=== PATIENT | female | born 1980 | race Caucasian/White ===

== ENCOUNTER → 2021-05-04 15:05 | Outpatient (CLI) | payer BC, SELFPAY ==
[2021-05-11 09:04] LABS: HPV APTIMA, High Risk Negative (Negative)
== END ==
PROVIDERS: PCP Internal Medicine; Visit Provider Obstetrics & Gynecology
DX: Z12.4 Encounter for screening for malignant neoplasm of cervix (principal)
CPT/HCPCS: 87624; 88175; G0145

== ENCOUNTER → 2023-05-01 | Outpatient (CLI) | payer BC, SELFPAY ==
--- NOTE | 2023-05-01 15:41 | BI_ITS ---
MAMMOGRAPHY - BILATERAL SCREENING REASON FOR EXAM: Female, 42 years old. Routine annual screening examination. PERTINENT HISTORY: Non-contributory. TECHNIQUE: Digital bilateral breast yuli (3D mammographic acquisition) in the CC and MLO projections. 2-D mediolateral oblique (MLO) and craniocaudad (CC) views of both breasts were obtained. CAD: Full Field Digital Mammography with Computer Added Detection was performed. COMPARISON: None. Baseline examination. FINDINGS: Breast Composition: The breasts are heterogeneously dense, which may obscure small masses. There is an 8.6 mm x 14.6 mm well-defined nodule in the inferior slightly medial aspect of the right breast. Correlation with ultrasound is recommended. No other significant abnormalities are identified. BI/SCRN MAMM (CAD)W/YULI BILAT IMPRESSION: 8.6 mm x 14.6 mm well-defined nodule in the inferior slightly medial aspect of the right breast. Correlation with ultrasound is recommended. ASSESSMENT CATEGORY: BIRADS Category 0: Incomplete. Need additional imaging evaluation. A letter regarding these results will be sent to the patient by the facility within 30 days. Approximately 10% of breast cancers are not detected by mammography. A normal mammogram should not delay biopsy of a clinically suspicious abnormality. [id number] Electronically Signed: Richard Giles MD at 8:45 EST ,
== END | disposition home or self-care (01) ==
PROVIDERS: PCP Internal Medicine; Referring Provider Nurse Practitioner Family; Visit Provider Nurse Practitioner Family
DX: Z12.31 Encounter for screening mammogram for malignant neoplasm of breast (principal)
CPT/HCPCS: 77063; 77067

== ENCOUNTER → 2023-05-09 | Outpatient (CLI) | payer BC, SELFPAY ==
--- NOTE | 2023-05-09 09:28 | US_ITS ---
STUDY: ULTRASOUND BREAST - RIGHT REASON FOR EXAM: Female, 42 years old. Abnormal screening mammogram. TECHNIQUE: Axial and longitudinal images of the RIGHT breast were performed with a high resolution ultrasound transducer. # OF IMAGES: 47 COMPARISON: Comparison is made with prior mammogram dated May 01, 2023. FINDINGS: RIGHT Breast: The inferior medial aspect of the right breast was examined with ultrasound. The mammographic abnormality corresponds to a 1.7 cm x 1.4 cm x 0.9 cm heterogeneous hypoechoic nodule at the 3:00 position of the breast at 1 cm from nipple. Biopsy recommended. There is also evidence of a 7 mm x 5 mm x 3 mm hypoechoic nodule within the subcutaneous fat just deep to the skin at the 4:00 position of the breast at 11 cm from the nipple. . This may represent a small sebaceous cyst. US/Breast Limited Unilateral IMPRESSION: The mammographic and mild) and 1.7 cm x 1.4 cm x 0.9 cm heterogeneous hypoechoic nodule at the 3:00 position of the breast at 1 cm from the nipple. Biopsy recommended. ASSESSMENT CATEGORY: BIRADS Category 4: Suspicious - Biopsy Should Be Considered. A letter regarding these results will be sent to the patient by the facility within 30 days. Electronically Signed: Richard Giles MD at 12:12 EST ,
== END | disposition home or self-care (01) ==
LOC: OPUS 09:27
PROVIDERS: PCP Internal Medicine; Referring Provider Nurse Practitioner Family; Visit Provider Nurse Practitioner Family
DX: N63.12 Unspecified lump in the right breast, upper inner quadrant (principal); N63.13 Unspecified lump in the right breast, lower outer quadrant
CPT/HCPCS: 76642

== ENCOUNTER → 2023-05-19 | Outpatient (CLI) | payer BC, SELFPAY ==
--- NOTE | 2023-05-19 10:30 | BRBX_PTH ---
PATIENT: ELIZA LIN LOC: [facility] U#:[id number] AGE/SX: 42/F ROOM: RE05/19/[address]: Dr. Kaitlynn Yung MD : 1980 BED: DIS: 05/19/2023 SPEC #: [id number] RECD: 05/19/23 13:16 STATUS: LYLE SADE #: [id number] MARILYN: 05/19/23 10:[address]: Kaitlynn Yung DEPT: SURGICAL PATHOLOGY RECD BY: Shannan Cerda ENTERED: 05/19/23 13:17 SP TYPE: BREAST BX OTHR DR: Dr. Shauna Ram DO Tissues: Right breast, NOS Procedures: Surgery Specimen Level IV HEADER OPERATION: Biopsy of right breast nodule PRE-OP DIAGNOSIS: Right breast nodule TISSUE SUBMITTED: Right breast nodule, 3 o'clock, 1 cm from nipple MICROSCOPIC DIAGNOSIS Right breast at 3 o'clock, needle core biopsy: Fibroadenoma. Focal fibrocystic change with associated banal microcalcifications. AM:moe 05/20/2023 MICROSCOPIC DESCRIPTION Slides are reviewed. GROSS DESCRIPTION Received in fixative is one container labeled with the patient's name and designated right breast nodule. The specimen consists of two cores of light krishna-yellow soft tissue measuring in aggregate 1.5 x 0.2 x 0.1 cm. The specimen is totally submitted in one cassette. / AM:moe 05/19/2023 TC:5 CPT: 74429
== END | disposition home or self-care (01) ==
LOC: LABSPEC 12:40
PROVIDERS: PCP Internal Medicine; Referring Provider Surgery; Visit Provider Surgery
DX: N63.10 Unspecified lump in the right breast, unspecified quadrant (principal)
CPT/HCPCS: 88305

== ENCOUNTER → 2024-01-26 | Outpatient (CLI) | payer BC, SELFPAY ==
--- NOTE | 2024-01-26 16:19 | US_ITS ---
STUDY: ULTRASOUND OF THE FEMALE PELVIS - COMPLETE REASON FOR EXAM: Female, 43 years old. AUB, prolapse LMP: January 24, 2024. TECHNIQUE: Transabdominal and Transvaginal TECHNICAL QUALITY: Adequate. COMPARISON: None. FINDINGS: The uterus is retroverted and is in a midline position. The uterus measures 9.2 cm x 5.9 cm x 3.7 cm. There is a Nabothian cyst of the cervix. The endometrium measures 4 mm in thickness, and is hyperechoic. There is no demonstrated endometrial mass. There is no demonstrated myometrial mass. I.U.D. - The patient does have an I.U.D. The right ovary is visualized. The right ovary measures 2.6 cm x 2.1 cm x 1.3 cm. There is a 9 mm x 14 mm x 8 mm dominant follicle in the right ovary. There is no visualized right adnexal mass or complex lesion. There is normal arterial and normal venous vascularity. The left ovary is visualized. The left ovary measures 3.2 cm x 1.7 cm x 1.3 cm. There is an 8 mm x 9 mm x 8 mm left ovarian follicle. There is no visualized left adnexal mass or complex lesion. There is normal arterial and normal venous vascularity. There is no fluid in the cul-de-sac. The pre void volume of the bladder was 318 ml. US/Pelvic w/ Transvaginal IMPRESSION: Follicles are seen in both ovaries. Electronically Signed: Richard Giles MD at 7:40 EDT ,
== END | disposition home or self-care (01) ==
LOC: US 16:19
PROVIDERS: PCP Nurse Practitioner Family; Referring Provider Obstetrics & Gynecology; Visit Provider Obstetrics & Gynecology
DX: N81.4 Uterovaginal prolapse, unspecified (principal); N93.9 Abnormal uterine and vaginal bleeding, unspecified
CPT/HCPCS: 76830; 76856

== ENCOUNTER 2024-01-30 05:33 | Day surgery (SDC) | payer BC, SELFPAY ==
[2024-01-23 08:00] LABS: Internal QC Validated? YES +Cl - CLEAR BKGD; Pregnancy, Urine Negative Negative
[2024-01-23 08:28] LABS: Hematocrit 39.5 % (37-47); Mean Corp Hgb Conc 32.9 g/dL (32-36); Mean Corpuscular Hgb 29.7 pg (27.0-32.0); Mean Corpuscular Volume 90.2 fL (81-99); Mean Platelet Vol. 10.1 fl (6.2-12.0); POSITIVE COUNT YES; RBC Distribution Width CV 12.7 % (11.6-14.6); RBC Distribution Width SD 42.4 fl (35.1-43.9); Red Blood Count 4.38 M/mm3 (4.2-5.4); White Blood Count 6.5 K/mm3 (4.4-11.0)
[2024-01-23 08:35] LABS: Magnesium 2.1 mg/dL (1.6-2.6); Thyroid Stim Hormone (TSH) 0.15 uIU/mL (0.358-3.74)
[2024-01-23 08:51] LABS: Scan Indicated on CBC? Y/N YES- FLAGS NOTED
[2024-01-23 08:55] LABS: Differential Comment SCANNED
[2024-01-30] VITALS (16 sets, daily range): BP systolic 90–117; BP diastolic 42–71; PULSE 74–109; RESP 16–20; TEMP 36.4–37.1; O2SAT 88–99; BMI 28.0
[2024-01-30 05:54] LABS: Internal QC Validated? YES +Cl - CLEAR BKGD; Pregnancy, Urine Negative Negative
[2024-01-30] MEDS: Magnesium 1 GM over 15 mins IV (06:16)
[2024-01-30] MEDS: Lactated Ringers 1,000 ML 40 ML IV (06:16)
[2024-01-30] MEDS: Acetaminophen 500 MG Tablet 1000 MG PO (06:21)
[2024-01-30] MEDS: Celecoxib 200 MG Capsule 400 MG PO (06:21)
[2024-01-30] MEDS: Gabapentin 600 MG Tablet PO (06:22)
[2024-01-30] MEDS: Enoxaparin 40 MG/0.4 ML Syringe SC (06:26)
[2024-01-30] MEDS: Scopolamine 1mg/72hr Patch 1 PATCH TD (06:30)
[2024-01-30] MEDS: dexAMETHasone 4 MG/ML Vial 8 MG IV (06:43)
[2024-01-30 07:07] LABS: Bedside Glucose 146 mg/dL (74-106)
--- NOTE | 2024-01-30 07:12 | PCM.PRE.AN2 ---
ASA Classification* ASA Classification ASA Classification: 2 Assessment & Plan Anesthesia* Anesthesia Assessment Anesthesia Assessment: Discussed sedation and/or anesthesia options, risks, benefits, and alternatives with patient/parents/legal guardian/POA. Questions invited. The patient/parents/legal guardian/POA seems to understand and agrees to proceed with anesthesia plan. Reviewed the physical assessment, medical history, allergy history and patient home medications list prior to surgery/procedure/anesthetic and documented any changes. Performed airway and anesthesia risk assessments. Anesthesia Type Anesthesia Type: General (see written pre anesthesia record for full assessment) Anesthesia Focused Assessment* Temperature: 97.7 F Pulse Rate: 74 Blood Pressure: 109/54 Respiratory Rate: 16 Pulse Ox: 99 Airway Assessment Mouth opens: >3 cm Mallampati Score: II Focused Labs Anesthesia Preop lab: CBC WBC 6.5 K/mm3 (4.4-11.0) 01/23/24 07:32 RBC 4.38 M/mm3 (4.2-5.4) 01/23/24 07:32 Hgb 13.0 g/dL (12.0-15.0) 01/23/24 07:32 Hct 39.5 % (37-47) 01/23/24 07:32 Plt Count TNP 01/23/24 07:32 CHEMISTRY Potassium 3.8 mmol/L (3.5-5.1) 11/26/13 05:55 Sodium 139 mmol/L (136-145) 11/26/13 05:55 Magnesium 2.1 mg/dL (1.6-2.6) 01/23/24 07:32 BUN 10 mg/dL (7-18) 11/26/13 05:55 Creatinine 0.8 mg/dL (0.6-1.0) 11/26/13 05:55 Glucose 113 mg/dL (70-110) H 11/26/13 05:55 POC Glucose 146 mg/dL (74-106) H 01/30/24 06:31 TSH 0.15 uIU/mL (0.358-3.74) L 01/23/24 07:32 COAG Urine Test Negative Negative 01/30/24 05:45 Pre-Assessment Diagnosis/Proposed Procedure Planned Operative Procedure(s): TOTAL VAGINAL HYSTERECTOMY BSO Anesthesia History Anesthesia History - research analyst: Anesthesia History - research analyst Hx Hospitalization No 01/16/24 09:00 Any Problems With Anesthesia No 01/16/24 09:00 Cholinesterase deficiency No 01/16/24 09:00 You/Your Family Experience No 01/16/24 09:00 fever (hyperthermia) with Relationship Recent Exposure to Contagious No 01/30/24 05:57 Disease Does patient have nerve No 01/16/24 09:00 stimulator Patient instructed to have device shut off --Does patient have Pacemaker No 01/30/24 05:57 or ICD? When Was Last Pacemaker Check QUESTION #4 FULL TEXT: You/Your Family Experience fever (hyperthermia) with Anesthesia Last Oral Intake Last Oral intake: Last Oral Intake NPO since 05:00 01/30/24 05:57 Meds taken in AM with sips of Yes 01/30/24 05:57 water? Meds patient instructed to see medlist 01/30/24 05:57 take am of surgery PONV PONV - research analyst: PONV - research analyst Female Yes 01/16/24 09:00 HX of Motion Sickness No 01/16/24 09:00 HX of N/V After Surgery No 01/16/24 09:00 Non-Smoker No 01/16/24 09:00 Duration of Surgery greater Yes 01/16/24 09:00 than 60 minutes Number of Risk Factors 2 01/16/24 09:00 PONV Score Moderate Risk 01/16/24 09:00 Height & Weight Height & Weight: Anesthesia: Height & Weight Height 5 ft 01/30/24 05:57 Weight: 65 kg 01/30/24 05:57 Body Mass Index (BMI) 28.0 01/30/24 05:57 Respiratory Assessment Respiratory Assessment - research analyst: Respiratory Tract Infection Hx - research analyst Hx Respiratory Tract Infection No 01/16/24 09:00 STOP Sleep Apnea STOP Sleep Apnea - research analyst: STOP Sleep Apnea - research analyst Hx Hypertension No 01/16/24 09:00 Hx Sleep Apnea No 01/16/24 09:00 CPAP No 11/25/13 16:12 BIPAP No 11/25/13 16:12 Do you snore loudly (louder No 01/16/24 09:00 than talking or can be heard Do you often feel tired/ No 01/16/24 09:00 fatigued/ sleepy during daytime? Has anyone observed you stop No 01/16/24 09:00 breathing during sleep? STOP Results Negative 01/16/24 09:00 QUESTION #5 FULL TEXT : Do you snore loudly (louder than talking or can be heard through closed doors)? Tobacco Use History Tobacco Use History - research analyst: Tobacco Use History - research analyst Tobacco Use Smoking Status Current every day smoker 01/16/24 09:00 Hx Tobacco Use Yes 01/16/24 09:00 Years Smoking Packs Smoked per Day Smoking Cessation Date was within the last 15 years Hx Smoking Cessation Date Hx Smoking Cessation No 01/16/24 09:00 Counseling Hematologic Medial History Hematologic Hx - research analyst: Hematologic Medical Hx - children's attendant Hx of Blood Transfusion No 01/16/24 09:00 Hx of Transfusion in last 3 No 01/16/24 09:00 Months Date of Last Transfusion (if within last 3 months) Ever experience any problems No 01/16/24 09:00 with transfusion(s)? Specify any problems Hx of Preganancy in last 3 No 01/16/24 09:00 Months Nurse Filling Out Transfusion DSCHRIBER 01/16/24 09:00 & Questions: Date: 01/16/24 01/16/24 09:00 Time: 09:01 01/16/24 09:00 Patient unable to answer at this time (ie. confused, unrespo /Reproduction History /Reproductive History - research analyst: /Reproductive Hx- research analyst Hx Now No 01/16/24 09:00 Gestational Age (in weeks): EDC: Hx Hx Para Hx Section SAB No 01/16/24 15:57 Active Medications Active Medications: Current Medications Generic Name Dose Route Start Last Admin Trade Name Freq PRN Reason Stop Dose Admin Acetaminophen 1,000 mg 01/30/24 07:30 01/30/24 06:21 Acetaminophen 500 Mg Tablet PO 01/30/24 07:31 1,000 mg PREOP ONE Administration Celecoxib 400 mg 01/30/24 07:30 01/30/24 06:21 Celecoxib 200 Mg Capsule PO 01/30/24 07:31 400 mg X1 ONE Administration Dexamethasone Sodium Phosphate 8 mg 01/30/24 07:30 01/30/24 06:43 Dexamethasone 4 Mg/Ml Vial IV 01/30/24 07:31 8 mg X1 ONE Administration Enoxaparin Sodium 40 mg 01/30/24 07:30 01/30/24 06:26 Enoxaparin 40 Mg/0.4 Ml Syringe SC 01/30/24 07:31 40 mg X1 ONE Administration Gabapentin 600 mg 01/30/24 07:30 01/30/24 06:22 Gabapentin 600 Mg Tablet PO 01/30/24 07:31 600 mg PREOP ONE Administration Lactated Ringer's 1,000 mls @ 40 mls/hr 01/30/24 07:30 01/30/24 06:16 IV 40 mls/hr .Q25H ELADIO Administration Cefazolin Sodium 2 gm/ Sodium 110 mls @ 150 mls/hr 01/30/24 07:30 Chloride IV 01/30/24 08:13 PREOP ONE Magnesium Sulfate 1 gm/ 102 mls @ 408 mls/hr 01/30/24 07:30 01/30/24 06:16 Dextrose IV 01/30/24 07:44 408 mls/hr X1 ONE Administration Insulin Human Lispro 0 unit 01/30/24 07:30 Insulin Lispro 100 Unit/Ml Insuln.Pen SC Q4H PRN PRN BG >/= 180, SEE PROTOCOL Protocol Ondansetron HCl 4 mg 01/30/24 07:30 Ondansetron 4 Mg/2 Ml Vial IV 01/30/24 07:31 X1 ONE Scopolamine HBr 1 patch 01/30/24 07:30 01/30/24 06:30 Scopolamine 1mg/72hr Patch TD 01/30/24 07:31 1 patch X1 ONE Administration PFSH Medical History Depression Anxiety Alcohol use Asthma Shortness of breath on exertion Smoker Papillary thyroid carcinoma History of benign breast biopsy Home Medications ?Medication ?Instructions ?Recorded ?Last Taken ?Type Cetirizine Hcl [Zyrtec] 10 mg PO DAILY 11/19/13 Unknown History levothyroxine 100 mcg tablet 100 mcg PO DAILY 11/19/13 01/30/24 History (Levoxyl) budesonide-formoterol HFA 80 2 puff inhalation DAILY 05/19/23 01/30/24 History mcg-4.5 mcg/actuation aerosol inhaler (Symbicort) levonorgestrel 21 mcg/24 hr (up to 1 device intrauterine ONCE 10/06/23 Unknown History 8 years) 52 mg intrauterine device (Mirena) cholecalciferol (vitamin D3) 125 10,000 unit PO DAILY 01/16/24 Unknown History mcg (5,000 unit) tablet (Vitamin D3) sertraline 100 mg tablet 150 mg PO DAILY 01/16/24 01/29/24 History Allergy/AdvReac Type Severity Reaction Status Date / Time No Known Allergies Allergy Verified 01/30/24 05:56 Family History Father Heart disease Mother Thyroid disorder Surgical History S/P thyroidectomy Social History household members: spouse current occupational status: employed current occupation: [employer] Smoking Status: Current every day smoker tobacco type: cigarettes alcohol intake: current substance use type: does not use seatbelt use: always do you feel safe at home: Yes 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
--- NOTE | 2024-01-30 07:26 | HP.PCM_ITS ---
History and Physical Date of Admission: 01/30/24 Vital Signs 11/10/2415:01 01/15/2415:56 01/15/2415:57 Height 5 ft 5 ft 5 ft Weight: 142 lb BMI 27.7 BP 121/76 H Intake Visit Reasons: TVHBS Pillowcase Folder Required: No Is patient in pain?: No Allergies No Known Allergies Allergy (Verified 01/16/24 15:57) Medications ?Medication ?Instructions ?Recorded ?Confirmed ?Type Cetirizine Hcl [Zyrtec] 10 mg PO DAILY 11/19/13 01/16/24 History levothyroxine 100 mcg tablet 100 mcg PO DAILY 11/19/13 01/16/24 History (Levoxyl) budesonide-formoterol HFA 80 2 puff inhalation DAILY 05/19/23 01/16/24 History mcg-4.5 mcg/actuation aerosol inhaler (Symbicort) levonorgestrel 21 mcg/24 hr (up to 1 device intrauterine ONCE 10/06/23 01/16/24 History 8 years) 52 mg intrauterine device (Mirena) cholecalciferol (vitamin D3) 125 10,000 unit PO DAILY 01/16/24 01/16/24 History mcg (5,000 unit) tablet (Vitamin D3) sertraline 100 mg tablet 150 mg PO DAILY 01/16/24 01/16/24 History Post menopausal: No Patient : No : No PFSH Medical History Depression Anxiety Alcohol use Asthma Shortness of breath on exertion Smoker Papillary thyroid carcinoma History of benign breast biopsy Surgical History S/P thyroidectomy Family History Father Heart diseaseMother Thyroid disorder Social History household members: spouse current occupational status: employed current occupation: [employer] Smoking Status: Current every day smoker tobacco type: cigarettes alcohol intake: current substance use type: does not use seatbelt use: always do you feel safe at home: Yes 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 she has a history of prolapse and AUB treated with IUD, wants to proceed with hysterectomy. she saw dr jorgensen. History 2 Elective abortions Hx Para 2 Spontaneous abortions Hx # Term Pregnancies Ectopic pregnancies Hx # Pregnancies Multiple births # of living children 2 Past Pregnancies Del. Date Name GA/Weeks Outcome Route Bth Weight Infant Gen Labor Lgth Anesthesia Del Locatn Provider FOB Unknown Tricia 2004 Unknown Romana 2008 ROS Const Constitutional: Denies fatigue, weight gain or weight loss Cardio Card: Denies chest pain Resp Resp: Denies cough or dyspnea on exertion GI GI: Denies abdominal pain, bloating, change in stool character, constipation or vomiting : Reports as per HPI, urinary frequency and urinary incontinence; Denies difficulty voiding, pelvic pain, urinary urgency, vaginal discharge or vaginal pruritus Exam Const General: cooperative, healthy appearing, no acute distress and well developed Orientation: alert, oriented to person and oriented to place HENMT Head: normal to inspection Neck Neck: normal visual inspection Thyroid: thyroid normal Lymphatic: no lymphadenopathy noted Resp Effort & Inspection: normal respiratory effort GI Palpation: soft, no masses and nontender Rectal Exam: deferred External Female Exam: normal external appearance and normal appearance of the urethra Urethra: normal appearance of the urethra and normal palpation Speculum Exam - Vagina: normal appearance of the vagina and normal vaginal discharge Speculum Exam - Cervix: normal appearance of the cervix (valsalva to introitus, grade III uterine strings 2cm from os) Bimanual Exam- Vagina & Uterus: normal bimanual exam, uterine size normal, uterine shape normal and non-tender Bimanual Exam- Adnexa, other: normal adnexae, no masses, normal, non-tender, No rectocele, No cystocele and vaginal apex descent (grade III uterine prolapse) Pelvic Support: normal, no cystocele noted, no retocele noted and vaginal apex descent (grade III uterine prolapse) Neuro General: patient alert and patient oriented x3 Psych Affect: normal affect Coding Level of Care Code No Charge Diagnoses Vaginal and cervical prolapse N81.4 Abnormal uterine bleeding (AUB) N93.9 Assessment and Plan Assessment and Plan (1) Vaginal and cervical prolapse: Status: Acute Comment: grade III uterine. plan TVHBS cystoscopy- place jessenia stitch also. jameel declined combo surgery due to prolapse not significant enough (2) Abnormal uterine bleeding (AUB): Status: Acute Comment: Needs mirena IUD replaced but wants TVH Orders: Orders Pelvic w/ Transvaginal Today N81.4 - Uterovaginal prolapse, unspecified, N93.9 - Abnormal uterine and vaginal bleeding, unspecified Plan After discussing the patient's diagnosis and treatment plan options, patient wishes to proceed with surgical management. I have discussed with the patient the risks, benefits, and alternatives of the procedure which include but are not limited to risks of anesthesia, bleeding, infection, possible damage to bowel, bladder, or surrounding vasculature which could lead to additional surgery to evaluate any complications. Patient agrees to procedure and wishes to proceed. ACOG/uptodate references given for additional information regarding procedure. After discussing the patient's diagnosis and treatment plan options, patient wishes to proceed with surgical management. I have discussed with the patient the risks, benefits, and alternatives of the procedure which include but are not limited to risks of anesthesia, bleeding, infection, possible damage to bowel, bladder, or surrounding vasculature which could lead to additional surgery to evaluate any complications. Patient agrees to procedure and wishes to proceed. ACOG/uptodate references given for additional information regarding procedure.
--- NOTE | 2024-01-30 07:30 | HYST_PTH ---
PATIENT: ELIZA LIN [place] [facility] [id number] AGE/SX: 43/F ROOM: RE01/30/[address]: Dr. Trixie Burnett MD : 1980 BED: DIS: 01/30/2024 SPEC #: [id number] RECD: 01/30/24 10:36 STATUS: LYLE STUART #: [id number] MARILYN: 01/30/24 07:[address]: Trixie Burnett DEPT: SURGICAL PATHOLOGY RECD BY: Marine Merchant ENTERED: 01/30/24 11:47 SP TYPE: HYSTERECT OTHR DR: MD Gloria Whalen, YARD DRIVER-C Tissues: A - Uterus, NOS B - Vulva, NOS Procedures: Surgery Specimen Level IV Surgery Specimen Level V HEADER OPERATION: Total hysterectomy, vaginal, bilateral salpingectomy PRE-OP DIAGNOSIS: Uterine bleeding, prolapse TISSUE SUBMITTED: A- Uterus, cervix, bilateral fallopian tubes, B- Left vulvar lesion MICROSCOPIC DIAGNOSIS A. Uterus, hysterectomy: Cervix- Squamous metaplasia and mild chronic inflammation. Endometrium- Proliferative endometrium with benign cystic change. Myometrium- Extensive adenomyosis and leiomyoma. Right and left fallopian tubes- Benign paratubal cyst. B. Left vulvar lesion, biopsy: Bening fibroepithelial polyp with focal viral cytopathic change. AM/ 02/02/2024 MICROSCOPIC DESCRIPTION Slides are reviewed. GROSS DESCRIPTION A. Received in fixative is one container labeled with the patient's name and designated uterus, cervix, bilateral fallopian tubes. The specimen consists of a hysterectomy specimen consisting of cervix with cervix with detached bilateral fallopian tubes. The uterus with cervix weighs 105 gm and measures 12.0 x 5.5 x 4.5cm. A few subserosal nodules are noted. The serosal surface is smooth. The ectocervical mucosa is unremarkable. The external os is oval and patulous in contour. The endocervical canal is elongated and measures up to 5.5cm in length and the endocervical mucosa is krishna glistening and unremarkable. The triangular endometrial cavity measures 5.0 cm in length and 2.5 cm in width. The endometrium is krishna glistening without any mass lesions and measures 0.1 cm in thickness. Sections of the uterine wall reveal one intermural nodule measuring 0.3cm in greatest dimension and one subserosal nodule measuring 0.6cm in dimension. Uterine wall measures up to 2.5cm in thickness. Also present in the container are two fallopian tubes, not identified as right or left and measures 3.0cm in length and 1.0cm in diameter and 3.0cm in length and 0.7cm in diameter. Fimbrial ends are identified. Sections reveal unremarkable cut surfaces. Forwarder Operator sections are submitted in nine cassettes as follows: 1 - anterior cervix, 2 - posterior cervix, 3 & 4 - anterior uterine wall, 5 & 6 - posterior uterine wall, 7- nodular masses, entirely submitted, 8-one fallopian tube, 9- second fallopian tube. B. Received in fixative is one container labeled with the patient's name and designated Left vulvar lesion. The specimen consists of a polypoid piece of krishna-white skin measuring 1.5 x 0.5 x 0.3cm. The specimen is inked, bisected and submitted entirely in one cassette. SJ:mr 01/30/2024 TC:5 CPT: 17232,70882
--- NOTE | 2024-01-30 07:41 | PCM.OPRPT ---
Problems Associated Problem List Diagnoses (1) Vaginal and cervical prolapse: (2) Abnormal uterine bleeding (AUB): Report of Operation Date of Procedure: 01/30/24 Pre-Operative Diagnosis: see A/P Post-Operative Diagnosis: same Surgery/Procedure Performed:: TVH BS cystoscopy Description of Surgical Findings:: enlarged prolapsed uterus with pelvic congestion Surgeon: Trixie Burnett machine inker: Leah Brown Type of Anesthesia: General Special Medications: none Specimen's removed: uterus, tubes Drains: short Estimated Blood Loss (mL): 300 Fluids Replaced: crystalloid Description of Procedure: Patient was taken to the operating room and was placed under general anesthesia was prepped and draped in normal sterile fashion in the dorsal lithotomy position. Preoperative antibiotics and SCDs and Short catheter was placed inside the bladder. Weighted speculum was placed in the vagina and the anterior and posterior lip of the cervix was grasped with 2 Monisha clamps and circumferentially injected with dilute vasopressin. A circumferential incision was made with a scalpel and the posterior cul-de-sac was entered into sharply and a longneck speculum was placed. The anterior cul-de-sac was also dissected down and entered into sharply and the uterosacral ligaments were clamped cut and suture ligated bilaterally followed by the cardinal ligaments which were Clamped cut and suture ligated bilaterally with 0 Monocryl. The uterus serially descended and progressive bites were taken bilaterally up to the level of the utero-ovarian ligament bilaterally which was clamped transected and double ligated with 0 Monocryl suture and 0 Vicryl free tie. Bilateral fallopian tubes and ovaries were well visualized and noted be within normal limits and the bilateral fallopian tubes were transected across the base with a Lenora clamp and removed and sutured with 0 Vicryl suture. Excellent hemostasis was noted. Posterior peritoneum was reapproximated with 2-0 Vicryl as was the anterior cuff due to some bleed, but hemostasis was achieved and a modified Qureshi stitch was placed through the posterior vaginal cuff and bilateral uterosacral ligaments across the posterior cul-de-sac skimming along to provide apical support to the vagina. The vagina was closed with [id number] 0 Vicryl pop offs including the posterior and anterior peritoneum in the reapproximation. cystoscopy performed and bladder integrity seen with bilateral ureters patent. Excellent hemostasis was noted. All instruments removed from the vagina clear urine was noted at the end of the procedure and patient was awoken and taken recovery in stable condition. Grafts/Implants Used: none Procedure Start Time: 08:11 Procedure Stop Time: 09:48 Complications none Admit VTE Documentation VTE Present on Admission: No VTE Mechan Device Prophylaxis: SCD's VTE Pharm Prophylaxis ordered?: Yes Multi Select Codes Urinary/Genital Urinary/Genital CPT Codes: 62955 Cystoscopy and 25967 TVH+BS/O <250gr uterus
--- NOTE | 2024-01-30 07:43 | DCINST_ITS ---
Discharge Instructions Diet Discharge Diet: No restrictions Activity Discharge Activity: Return to Normal Activity, May Not Drive (while taking narcotic pain medications.) and May Shower May resume sexual activity in: 6-8 weeks Dressing / Incision Call your doctor if your incision/area has: Continuous Slow Oozing, Sudden Increased Bleeding, Increased Pain/ Swelling, Increased Redness and Foul Smelling Discharge Call your doctor if you observe: Fever of 101 or Higher, Inability to urinate, Inability to have a bowel movement and Using more than 1 pad per hour Follow Up Care Please Follow Up With: Trixie Burnett MD Test Results: Test results from this visit will be discussed in further detail at your follow- up appointment, if applicable. Discharge Plan Admission Attending Provider: Trixie Burnett Primary Care Provider: Gloria Yu Consulting Providers: Brendan Youngblood Instructions Print Language: Telugu Discharge Orders/Prescriptions Prescriptions: New oxycodone-acetaminophen [Percocet] 5-325 mg tablet 1 tab PO Q6H PRN (Reason: pain) 7 Days Qty: 20 0RF naproxen 500 mg tablet 500 mg PO BID PRN PRN (Reason: Pain) Qty: 30 1RF No Action Mirena 21 mcg/24 hours (8 yrs) 52 mg intrauterine device 1 device intrauterine ONCE Rx Instructions: as a single dose budesonide-formoterol [Symbicort] 80-4.5 mcg/actuation HFA aerosol inhaler 2 puff inhalation DAILY levothyroxine [Levoxyl] 100 MCG tablet 100 mcg PO DAILY Patient Comments: THYROID Cetirizine Hcl [Zyrtec] 10 MG tablet 10 mg PO DAILY Patient Comments: ALLERGIES sertraline 100 mg tablet 150 mg PO DAILY Patient Comments: DEPRESSION/ANXIETY cholecalciferol (vitamin D3) [Vitamin D3] 125 mcg (5,000 unit) tablet 10,000 unit PO DAILY Referrals / Follow Up: Fast,Shauna, DO [Med Staff - [employer]] - Disposition Disposition (needs filled in before D/C Order can be placed): Home, Self Care
[2024-01-30] MEDS: Cefazolin 2 GM in 0.9% Normal Saline (100mL Bag) 100 ML IV (07:50)
[2024-01-30] MEDS: Methylene Blue 1% 100 MG/10 ML VIAL (08:54)
[2024-01-30] MEDS: Vasopressin 20 UNITS/ML Vial (09:14)
[2024-01-30] MEDS: Ondansetron 4 MG/2 ML Vial IV (09:38)
--- NOTE | 2024-01-30 10:08 | PCM.POST.ANE ---
Anesthesia: Postop Eval I Current Vital Signs Temperature: 98.7 F Pulse Rate: 109 Blood Pressure: 90/62 Respiratory Rate: 20 Pulse Ox: 91 Oxygen Delivery Method: Nasal Cannula Oxygen Flow Rate (L/min): 4 Assessment Airway patent: Yes Spontaneous unlabored respirations: Yes Mental status: Awake nausea: No Vomiting: No Anesthesia Complication: No Fluid Hydration Crystalloid volume administer (ml): 1,500 Total IV fluid infused: 1,500 Progress Note Anesthesia document: Postop Eval 1 completed: Yes
--- NOTE | 2024-01-30 10:32 | POSTOPAN2_ITS ---
Anesthesia Postop Eval I Sum Postop Eval Completion status Anesthesia document: Postop Eval 1 completed: Yes Anesthesia Postop Eval I Summary Anesthesia Postop Eval I Summary: Anesthesia Postop Eval I: Assessment Summary Airway patent Yes 01/30/24 10:09 AUTOMATIC LATHE SETTER.[email or web address] Spontaneous unlabored Yes 01/30/24 10:09 AUTOMATIC LATHE SETTER.JDEF respirations Mental status Awake 01/30/24 10:09 AUTOMATIC LATHE SETTER.JDEF nausea No 01/30/24 10:09 AUTOMATIC LATHE SETTER.JDEF Vomiting No 01/30/24 10:09 AUTOMATIC LATHE SETTER.JDEF Anesthesia Postop Eval I: Fluid Summary Crystalloid volume administer 1,500 01/30/24 10:09 AUTOMATIC LATHE SETTER.JDEF (ml) Colloids volume administered ( ml) Blood Product volume administered (ml) Total IV fluid infused 1,500 01/30/24 10:09 AUTOMATIC LATHE SETTER.JDEF Anesthesia Postop Eval I: Summary Notes Anesthesia Complication No 01/30/24 10:09 AUTOMATIC LATHE SETTER.JDEF Anesthesia Complication Comment: Post-operative progress note Anesthesia: Postop Eval II Evaluation Mental status: Awake Pain Level: 0 nausea: No Vomiting: No
--- NOTE | 2024-01-30 10:32 | PCM.POSTANE2 ---
Anesthesia Postop Eval I Sum Postop Eval Completion status Anesthesia document: Postop Eval 1 completed: Yes Anesthesia Postop Eval I Summary Anesthesia Postop Eval I Summary: Anesthesia Postop Eval I: Assessment Summary Airway patent Yes 01/30/24 10:09 [email or web address] Spontaneous unlabored Yes 01/30/24 10:09 [email or web address] respirations Mental status Awake 01/30/24 10:09 [email or web address] nausea No 01/30/24 10:09 [email or web address] Vomiting No 01/30/24 10:09 [email or web address] Anesthesia Postop Eval I: Fluid Summary Crystalloid volume administer 1,500 01/30/24 10:09 [email or web address] (ml) Colloids volume administered ( ml) Blood Product volume administered (ml) Total IV fluid infused 1,500 01/30/24 10:09 [email or web address] Anesthesia Postop Eval I: Summary Notes Anesthesia Complication No 01/30/24 10:09 [email or web address] Anesthesia Complication Comment: Post-operative progress note Anesthesia: Postop Eval II Evaluation Mental status: Awake Pain Level: 0 nausea: No Vomiting: No
[2024-01-30] MEDS: oxyCODONE 5 MG Tablet PO (13:05)
--- NOTE | 2024-01-30 13:06 | SUR.PHASEII ---
walked to br. voided
[2024-01-30 13:38] LABS: Hematocrit 36.8 % (37-47); Mean Corp Hgb Conc 32.6 g/dL (32-36); Mean Corpuscular Hgb 29.3 pg (27.0-32.0); Mean Platelet Vol. 9.6 fl (6.2-12.0); Platelet Count 330 K/mm3 (150-450); RBC Distribution Width CV 12.7 % (11.6-14.6); RBC Distribution Width SD 42.1 fl (35.1-43.9); Red Blood Count 4.09 M/mm3 (4.2-5.4); White Blood Count 15.6 K/mm3 (4.4-11.0)
== END 2024-01-30 14:41 | disposition home or self-care (01) ==
LOC: SDC 05:36 → AC 05:36
PROVIDERS: Anesthesiology; PCP Nurse Practitioner Family; Referring Provider Obstetrics & Gynecology; Visit Provider Obstetrics & Gynecology
PROC: (CPT 58260; principal; 2024-01-30 07:10)
DX: N87.9 Dysplasia of cervix uteri, unspecified (principal); N93.9 Abnormal uterine and vaginal bleeding, unspecified; F17.210 Nicotine dependence, cigarettes, uncomplicated; J45.909 Unspecified asthma, uncomplicated; N81.4 Uterovaginal prolapse, unspecified; N72 Inflammatory disease of cervix uteri; N80.03 Adenomyosis of the uterus; N83.8 Other noninflammatory disorders of ovary, fallopian tube and broad ligament; N90.89 Other specified noninflammatory disorders of vulva and perineum; N84.3 Polyp of vulva; F41.9 Anxiety disorder, unspecified; F32.A Depression, unspecified; Z79.899 Other long term (current) drug therapy; E07.9 Disorder of thyroid, unspecified; Z79.890 Hormone replacement therapy
CPT/HCPCS: 58262; 00944; 36415; 81025; 82962; 83735; 84443; 85027; 86850; 86900; 86901; 88305; 88307; 93005; J7120; J2405; J3475

== ENCOUNTER → 2024-05-13 | Outpatient (CLI) | payer BC, SELFPAY ==
--- NOTE | 2024-05-13 16:20 | BI_ITS ---
MAMMOGRAPHY - BILATERAL SCREENING REASON FOR EXAM: Female, 43 years old. Routine annual screening examination. PERTINENT HISTORY: Non-contributory. Prior ultrasound-guided breast biopsy of the right breast. TECHNIQUE: Digital bilateral breast yuli (3D mammographic acquisition) in the CC and MLO projections. 2-D mediolateral oblique (MLO) and craniocaudad (CC) views of both breasts were obtained. CAD: Full Field Digital Mammography with Computer Added Detection was performed. COMPARISON: Comparison is made with prior study dated May 01, 2023. FINDINGS: Breast Composition: The breasts are heterogeneously dense, which may obscure small masses. Stable 8.6 mm x 14.6 mm well-defined nodule in the inferior slightly medial aspect of the right breast. A tissue clip marker is seen within it. There is a new 1 cm nodular density in the deep upper lateral aspect of the left breast. Correlation with ultrasound is recommended. Stable bilateral axillary lymph nodes. No other significant abnormalities are identified. BI/SCRN MAMM (CAD)W/YULI BILAT IMPRESSION: 1 cm nodular density in the deep upper outer aspect of the left breast which is new as compared to the prior study. Sonographic correlation recommended. ASSESSMENT CATEGORY: BIRADS Category 0: Incomplete. Need additional imaging evaluation. A letter regarding these results will be sent to the patient by the facility within 30 days. Approximately 10% of breast cancers are not detected by mammography. A normal mammogram should not delay biopsy of a clinically suspicious abnormality. [id number] Electronically Signed: Richard Giles MD at 8:13 EST ,
== END | disposition home or self-care (01) ==
LOC: OPBI 16:20
PROVIDERS: PCP Nurse Practitioner Family; Referring Provider Nurse Practitioner Women's Health; Visit Provider Nurse Practitioner Women's Health
DX: Z12.31 Encounter for screening mammogram for malignant neoplasm of breast (principal)
CPT/HCPCS: 77063; 77067

== ENCOUNTER → 2024-05-19 | Outpatient (CLI) | payer BC, SELFPAY ==
--- NOTE | 2024-05-19 10:54 | US_ITS ---
STUDY: ULTRASOUND BREAST - LEFT REASON FOR EXAM: Female, 43 years old. Lump, abnormal mammogram TECHNIQUE: Axial and longitudinal images of the LEFT breast were performed with a high resolution ultrasound transducer. # OF IMAGES: 14 COMPARISON: Mammogram from 05/13/2024. FINDINGS: LEFT Breast: Focused sonographic evaluation of the left breast at 2:00, 7 cm from the nipple shows a septated cyst measuring 1.1 x 1.6 x 1.0 cm it corresponds to the abnormality noted on mammogram. No suspicious shadowing solid lesion, architectural distortion or clustered shadowing calcifications No specific follow-up needed for this cystic lesion unless it is bothersome to the patient in which case it could be aspirated under sonographic guidance US/Breast Limited Unilateral IMPRESSION: No suspicious sonographic findings, septated cyst corresponds to the abnormality noted on mammogram. ASSESSMENT CATEGORY: BIRADS Category 2: Benign. A letter regarding these results will be sent to the patient by the facility within 30 days. Electronically Signed: Leif Clinton MD at 12:10 EST ,
== END | disposition home or self-care (01) ==
LOC: OPUS 10:53
PROVIDERS: PCP Nurse Practitioner Family; Referring Provider Nurse Practitioner Women's Health; Visit Provider Nurse Practitioner Women's Health
DX: N63.21 Unspecified lump in the left breast, upper outer quadrant (principal)
CPT/HCPCS: 76642